=== PATIENT | female | born 2000 | race Two or more races ===

== ENCOUNTER 2023-01-30 11:16 | Outpatient (CLI) | payer OTHER | END 2023-01-30 13:12 | disposition home or self-care (01) | LOC: PRENATAL 11:16 | PROVIDERS: ATTEND Obstetrics & Gynecology Maternal & Fetal Medicine | DX: O35.9XX0 Maternal care for (suspected) fetal abnormality and damage, unspecified, not applicable or unspecified (principal); O35.3XX0 Maternal care for (suspected) damage to fetus from viral disease in mother, not applicable or unspecified; O44.00 Complete placenta previa NOS or without hemorrhage, unspecified trimester; Z3A.19 19 weeks gestation of pregnancy ==

== ENCOUNTER 2023-05-26 08:49 | Outpatient (CLI) | payer OTHER | END 2023-05-26 08:50 | disposition home or self-care (01) | LOC: PRENATAL 08:49 | PROVIDERS: ATTEND Obstetrics & Gynecology Maternal & Fetal Medicine | DX: O26.849 Uterine size-date discrepancy, unspecified trimester (principal); O36.8199 Decreased fetal movements, unspecified trimester, other fetus; Z3A.36 36 weeks gestation of pregnancy ==

== ENCOUNTER 2023-05-30 20:11 | Outpatient (CLI) | payer OTHER ==
[2023-05-30 22:24] LABS: HEMATOCRIT 29.7 % (36.0-45.00); HEMOGLOBIN 9.5 g/dL (12.0-15.00); MEAN CELL VOLUME 76.1 fL (80.00-100.00); MEAN CORPUSCULAR HEMOGLOBIN 24.3 pg (27.00-32.0); PLATELET COUNT 260 K/uL (150-450); RED CELL DISTRIBUTION WIDTH 16.2 % (11.5-14.5)
[2023-05-30 22:25] LABS: URINE APPEARANCE Turbid; URINE BILIRRUBIN Small (NEGATIVE); URINE BLOOD Negative; URINE COLOR Dark Yellow; URINE GLUCOSE Negative (NEGATIVE); URINE LEUKOCYTE Trace; URINE NITRATE Negative; URINE PROTEIN 30 (NEGATIVE)
[2023-05-30 22:29] LABS: URINE BACTERIA 1306.5 uL (0.0-1933); URINE EPITHELIAL CELLS 124.6 uL (0.0-38.8); URINE RBC 5.6 uL (0.0-20.8); URINE WBC 44.9 uL (0.0-23.2)
[2023-05-30 22:40] LABS: INR < 0.93; PARTIAL THROMBOPLASTIN TIME 25.6 SECONDS (22.0-34.0); PROTHROMBIN TIME 9.8 SECONDS (9.0-11.5)
[2023-05-30 22:44] LABS: URINE CRYSTALS MANY /HPF; URINE YEAST NEGATIVE /hpf
== END 2023-05-31 09:42 | disposition home or self-care (01) ==
LOC: OBS/DEL 20:11
PROVIDERS: Specialist; ATTEND Obstetrics & Gynecology
DX: O09.513 Supervision of elderly primigravida, third trimester (principal); Z3A.37 37 weeks gestation of pregnancy; O47.1 False labor at or after 37 completed weeks of gestation

== ENCOUNTER 2023-06-15 05:53 | Inpatient (IN) | payer OTHER ==
[~2023-06-15] VITALS: Ht 165.1 cm; Wt 67.1 kg
[2023-06-15 09:53] LABS: PH,URINE 5.5 (5.0-8.0); URINE APPEARANCE Cloudy; URINE BILIRRUBIN Negative (NEGATIVE); URINE BLOOD Negative; URINE COLOR Yellow; URINE LEUKOCYTE Negative; URINE NITRATE Negative; URINE PROTEIN Trace (NEGATIVE)
[2023-06-15 09:57] LABS: URINE BACTERIA 2511.1 uL (0.0-1933); URINE EPITHELIAL CELLS 87.4 uL (0.0-38.8); URINE RBC 4.4 uL (0.0-20.8)
[2023-06-15 10:06] LABS: HEMATOCRIT 30.1 % (36.0-45.00); HEMOGLOBIN 9.9 g/dL (12.0-15.00); MEAN CELL VOLUME 73.8 fL (80.00-100.00); MEAN CORPUSCULAR HEMOGLOBIN 24.2 pg (27.00-32.0); MEAN CORPUSCULAR HGB CONC 32.7 g/dl (32.0-36.0); PLATELET COUNT 273 K/uL (150-450); RED BLOOD COUNT 4.08 M/uL (4.00-6.00); RED CELL DISTRIBUTION WIDTH 17.1 % (11.5-14.5)
[2023-06-15 10:30] LABS: URINE GLUCOSE 100 MG/DL (NEGATIVE)
[2023-06-15 10:51] LABS: ALBUMIN 2.8 gm/dL (3.4-5.0); BILIRUBIN TOTAL 0.26 mg/dL (0.3-1.2); CALCIUM 8.6 mg/dL (8.5-10.1); CREATININE SERUM 0.57 mg/dL (0.55-1.02); GFR 132.63; GLOBULINA 3.4 G/DL (2.4-3.5); POTASSIUM 3.66 mEq/L (3.5-5.1); TOTAL PROTEIN 6.2 gm/dL (6.4-8.2)
[2023-06-15 22:20] LABS: ABG pCO2 53.3 mmHg (35-45); SaO2 64.9 %
[2023-06-15 22:21] LABS: BASE EXCESS -13.7 mmol/l; BICARBONATE 16.2 mmol/l (23-25); Tco2 17.8 mmol/l
[2023-06-15 22:22] LABS: o2 21 %
[2023-06-16 01:56] LABS: HEMATOCRIT 23.9 % (36.0-45.00); MEAN CELL VOLUME 73.9 fL (80.00-100.00); MEAN CORPUSCULAR HGB CONC 31.6 g/dl (32.0-36.0); PLATELET COUNT 224 K/uL (150-450); RED BLOOD COUNT 3.23 M/uL (4.00-6.00); RED CELL DISTRIBUTION WIDTH 17.3 % (11.5-14.5)
[2023-06-16 01:59] LABS: MEAN CORPUSCULAR HEMOGLOBIN 23.5 pg (27.00-32.0)
[2023-06-16 02:12] LABS: HEMOGLOBIN 7.6 g/dL (12.0-15.00)
== END 2023-06-18 13:55 | disposition home or self-care (01) | DRG 788 ==
LOC: LDR 05:53 → OB/GYN 05:53 → LDR 07:47 → O/R 20:28 → OB/GYN 20:41
PROVIDERS: ADMIT Obstetrics & Gynecology; ATTEND Obstetrics & Gynecology
PROC: 4A1HXCZ Monitoring of Products of Conception, Cardiac Rate, External Approach (ICD-10-PCS; 2023-06-15)
PROC: 10D00Z1 Extraction of Products of Conception, Low, Open Approach (ICD-10-PCS; principal; 2023-06-15 19:15)
DX: O69.0XX0 Labor and delivery complicated by prolapse of cord, not applicable or unspecified (principal); O76 Abnormality in fetal heart rate and rhythm complicating labor and delivery; Z3A.39 39 weeks gestation of pregnancy; Z37.0 Single live birth; Z20.822 Contact with and (suspected) exposure to COVID-19